=== PATIENT | male | born 2000 | race Two or more races ===

== ENCOUNTER 2020-07-25 14:02 | Emergency (ER) | payer OTHER | END 2020-07-25 15:20 | disposition home or self-care (01) | LOC: BURERS 14:02 | DX: S39.011A Strain of muscle, fascia and tendon of abdomen, initial encounter (principal); B34.9 Viral infection, unspecified; J45.909 Unspecified asthma, uncomplicated; Z20.822 Contact with and (suspected) exposure to COVID-19 | CPT/HCPCS: 36415; 85379; 99283 ==